=== PATIENT | female | born 1985 | race Caucasian/White ===

== ENCOUNTER 2017-10-10 10:34 | Emergency (ER) | payer BC, OTHER ==
--- NOTE | 2017-10-10 11:04 | ER Document Report ---
ED Medical Screen (RME) - General Chief Complaint: Palpitations Stated Complaint: HEARTRATE ISSUE Time Seen by Provider: 10/10/17 11:01 Notes: Patient says that she has noticed her heart rate increased this morning. She feels "heavy" in the front of her chest. Her heart rate was 120 earlier this morning and got up as high as 144, measured by a sports wristwatch. Also feels some shortness of breath. Patient is approximately 35 weeks and 3 days , G2, P1, A0. Has not been sick recently. Has not had any fevers. Patient is on thyroid medication. TRAVEL OUTSIDE OF THE [place] IN LAST 30 DAYS: No - Related Data Allergies/Adverse Reactions: pertussis vaccine,fluid [Pertussis Vaccine,Fluid] Allergy (Mild, Verified 10:35) "bad reaction" Past Medical History - Social History Chew tobacco use (# tins/day): No Frequency of alcohol use: None Drug Abuse: None - Past Medical History Cardiac Medical History: Denies: Hx Coronary Artery Disease, Hx Heart Attack, Hx Hypertension Pulmonary Medical History: Denies: Hx Asthma, Hx Bronchitis, Hx COPD, Hx Pneumonia Neurological Medical History: Denies: Hx Cerebrovascular Accident, Hx Seizures Renal/ Medical History: Denies: Hx Peritoneal Dialysis Musculoskeltal Medical History: Denies Hx Arthritis Past Surgical History: Reports: Hx Section - x1, Hx Tonsillectomy. Denies: Hx Hysterectomy - Immunizations Hx Diphtheria, Pertussis, Tetanus Vaccination: Yes Physical Exam - Vital signs Vitals: Temp Pulse Resp BP Pulse Ox 98.4 F 103 H 16 138/74 H 97 10/10/17 10:45 10/10/17 10:45 10/10/17 10:45 10/10/17 10:45 10/10/17 10:45 Course - Vital Signs Vital signs: Temp Pulse Resp BP Pulse Ox 98.4 F 103 H 16 138/74 H 97 10/10/17 10:45 10/10/17 10:45 10/10/17 10:45 10/10/17 10:45 10/10/17 10:45 Doctor's Discharge - Discharge Referrals: KENNEDI CHANG MD [Primary Care Provider] - Follow up as needed
[2017-10-10 11:36] LABS: ABSOLUTE EOSINOPHILS # (AUTO) 0.1 10^3/uL (0.0-0.6); ABSOLUTE LYMPHOCYTES (AUTO) 1.5 10^3/uL (0.5-4.7); ABSOLUTE MONOCYTES (AUTO) 0.8 10^3/uL (0.1-1.4); ABSOLUTE NEUT (AUTO) 7.2 10^3/uL (1.7-8.2); BASOPHILS % (AUTO) 0.3 % (0-2); EOSINOPHILS % (AUTO) 0.7 % (0-6); HEMATOCRIT 39.4 % (36.0-47.0); HEMOGLOBIN 13.3 g/dL (12.0-15.5); LYMPHOCYTES % (AUTO) 15.6 % (13-45); MEAN CORPUSCULAR HEMOGLOBIN 29.9 pg (27.0-33.4); MEAN CORPUSCULAR HGB CONC 33.9 g/dL (32.0-36.0); MEAN CORPUSCULAR VOLUME 88 fl (80-97); PLATELET COUNT 162 10^3/uL (150-450); RED BLOOD COUNT 4.46 10^6/uL (3.72-5.28); RED CELL DISTRIBUTION WIDTH 13.6 % (11.5-14.0); SEGMENTED NEUTROPHILS % (AUTO) 75.4 % (42-78); TOTAL CELLS COUNTED % (AUTO) 100 %; WHITE BLOOD COUNT 9.6 10^3/uL (4.0-10.5)
[2017-10-10 11:46] LABS: APPEARANCE,URINE SLIGHTLY-CLOUDY; BILIRUBIN,URINE NEGATIVE (NEGATIVE); COLOR,URINE YELLOW; GLUCOSE, URINE NEGATIVE (NEGATIVE); KETONES,URINE NEGATIVE (NEGATIVE); LEUKOCYTE ESTERASE,URINE NEGATIVE (NEGATIVE); NITRITE,URINE NEGATIVE (NEGATIVE); PROTEIN,URINE NEGATIVE (NEGATIVE); URINE SPECIFIC GRAVITY 1.004; UROBILINOGEN,URINE NEGATIVE mg/dL (<2.0)
[2017-10-10 11:52] LABS: ALANINE AMINOTRANSFERASE 20 U/L (9-52); ALBUMIN 3.7 g/dL (3.5-5.0); ALKALINE PHOSPHATASE 87 U/L (38-126); ANION GAP 10 (5-19); ASPARTATE AMINO TRANSFERASE 22 U/L (14-36); BILIRUBIN,DIRECT 0.2 mg/dL (0.0-0.4); BILIRUBIN,TOTAL 0.2 mg/dL (0.2-1.3); BLOOD UREA NITROGEN 7 mg/dL (7-20); CALCIUM 10.1 mg/dL (8.4-10.2); CARBON DIOXIDE 23 mmol/L (22-30); CHLORIDE 105 mmol/L (98-107); CREATINE KINASE 43 U/L (30-135); GLUCOSE 81 mg/dL (75-110); LIPASE 108.2 U/L (23-300); POTASSIUM 4.2 mmol/L (3.6-5.0); SODIUM 137.7 mmol/L (137-145); TOTAL PROTEIN 6.9 g/dL (6.3-8.2)
--- NOTE | 2017-10-10 11:52 | RADIOLOGY REPORT (SQ) ---
EXAM DESCRIPTION: CHEST 2 VIEWS COMPLETED DATE/TIME: 10/10/2017 11:35 am REASON FOR STUDY: Short of breath and heavy, 35 weeks COMPARISON: None. EXAM PARAMETERS: NUMBER OF VIEWS: two views TECHNIQUE: Digital Frontal and Lateral radiographic views of the chest acquired. RADIATION DOSE: NA LIMITATIONS: none FINDINGS: LUNGS AND PLEURA: No opacities, masses or pneumothorax. No pleural effusion. MEDIASTINUM AND HILAR STRUCTURES: No masses or contour abnormalities. HEART AND VASCULAR STRUCTURES: Heart normal size. No evidence for failure. BONES: No acute findings. HARDWARE: None in the chest. OTHER: No other significant finding. IMPRESSION: NO ACUTE RADIOGRAPHIC FINDING IN THE CHEST. TECHNICAL DOCUMENTATION: JOB ID: [id number] [employer]- All Rights Reserved Reading location - IP/workstation name: [email or web address]
[2017-10-10 12:00] LABS: CREATINE KINASE MB 0.78 ng/mL (<4.55)
[2017-10-10 12:08] LABS: TROPONIN I < 0.012 ng/mL
[2017-10-10 12:09] LABS: FREE T4 (FREE THYROXINE) 0.68 ng/dL (0.78-2.19)
[2017-10-10 12:22] LABS: THYROID STIMULATING HORMONE 3.72 uIU/mL (0.47-4.68)
--- NOTE | 2017-10-10 13:31 | ER Document Report ---
ED Cardiac - General Chief Complaint: Palpitations Stated Complaint: HEARTRATE ISSUE Time Seen by Provider: 10/10/17 11:01 Information source: Patient Notes: Patient is a 32-year-old female that presents today with the onset this morning it woke up feeling some chest pressure, palpitations, and shortness of breath. Patient denies any radiation of the pain. She denies any previous history of pain. She denies any recent calf pain or leg swelling above baseline. Patient is 35 weeks . Patient was told to come to the emergency department by the [facility] OPERATOR. Patient does have a history of thyroid disorder. TRAVEL OUTSIDE OF THE [place] IN LAST 30 DAYS: No - HPI Patient complains to provider of: Other - See above Was the onset of pain: Sudden Is the pain a: New problem Chest pain location: Substernal Quality of pain: Other - See above Chest pain radiation location: None Severity now: None Severity at worst: Mild Pain level currently: Denies Chest pain precipitating factors: At Rest Cardiac risk factors: None Associated symptoms: Other - See above Exacerbated by: Denies Relieved by: Nothing Similar symptoms previously: No Recently seen / treated by doctor: Yes - Related Data Allergies/Adverse Reactions: pertussis vaccine,fluid [Pertussis Vaccine,Fluid] Allergy (Mild, Verified 10:35) "bad reaction" Past Medical History - General Information source: Patient - Social History Smoking Status: Never Smoker Cigarette use (# per day): No Chew tobacco use (# tins/day): No Smoking Education Provided: No Frequency of alcohol use: None Drug Abuse: None Family History: Reviewed & Not Pertinent - No family history of DVT/PE Patient has suicidal ideation: No Patient has homicidal ideation: No - Past Medical History Cardiac Medical History: Denies: Hx Coronary Artery Disease, Hx Heart Attack, Hx Hypertension Pulmonary Medical History: Denies: Hx Asthma, Hx Bronchitis, Hx COPD, Hx Pneumonia Neurological Medical History: Denies: Hx Cerebrovascular Accident, Hx Seizures Renal/ Medical History: Denies: Hx Peritoneal Dialysis Musculoskeletal Medical History: Denies Hx Arthritis Past Surgical History: Reports: Hx Section - x1, Hx Tonsillectomy. Denies: Hx Hysterectomy - Immunizations Hx Diphtheria, Pertussis, Tetanus Vaccination: Yes Review of Systems - Review of Systems Constitutional: denies: Fever EENT: denies: Eye discharge, Nose discharge Respiratory: denies: Short of breath Gastrointestinal: denies: Vomiting Genitourinary: denies: Dysuria Musculoskeletal: denies: Leg swelling Skin: Other - no hives. denies: Rash Neurological/Psychological: Other - no slurred speech -: Yes All other systems reviewed and negative Physical Exam - Vital signs Vitals: Temp Pulse Resp BP Pulse Ox 98.4 F 103 H 16 138/74 H 97 10/10/17 10:45 10/10/17 10:45 10/10/17 10:45 10/10/17 10:45 10/10/17 10:45 Notes: Reviewed vital signs and nursing note as charted by RN. CONSTITUTIONAL: Alert and oriented and responds appropriately to questions. Well -appearing; well-nourished HEAD: Normocephalic; atraumatic EYES: PERRL; Conjunctivae clear, sclerae non-icteric ENT: Normal nose; no rhinorrhea; moist mucous membranes; pharynx without lesions noted NECK: Supple without meningismus; non-tender; no cervical lymphadenopathy, no thyromegaly CARD: Regular rate and rhythm on my initial examination currently with a heart rate of 92; no murmurs, no clicks, no rubs, no gallops; symmetric distal pulses RESP: Normal chest excursion without splinting or tachypnea; breath sounds clear and equal bilaterally; no wheezes, no rhonchi, no rales ABD/GI: Normal bowel sounds; distended consistent with dates. No abdominal tenderness to palpation BACK: The back appears normal and is non-tender to palpation EXT: Normal ROM in all joints; non-tender to palpation; no cyanosis, no edema SKIN: No acute lesions noted NEURO: Moves all extremities equally; Motor and sensory function intact PSYCH: The patient's mood and manner are appropriate. Grooming and personal hygiene are appropriate. Course - Re-evaluation Re-evalutation: 10/10/17 13:30 Given the above history and physical examination, cardiac panel, EKG, TSH and T4 all were drawn. Patient denies any pain currently at this time. Labs as recorded. EKG shows heart of 95, normal sinus rhythm, minimal LVH, no ST elevation or depression. Given the above history and physical, a d-dimer was ordered in triage with the belief that if this was negative, the patient could be excluded from having a possible pulmonary embolism. I believe that this was a reasonable plan. D- dimer as recorded. This still could be elevated secondary to . I had a very long talk with the patient about the risks and benefits of CT scan. Ultrasound and possibly echo. I have explained that we cannot completely exclude a pulmonary embolism but that a CTA is most likely to be the highest sensitivity. Given that the patient is in her third trimester, I do believe the risks to the fetus have much decreased. Patient has thought about the options and will proceed with a CT of the chest. I believe that this is reasonable. 10/10/17 15:37 CTA as recorded. Patient still denies any abdominal pain or contractions. I have discussed with the [facility] OPERATOR Dr. Chang in the emergency department who states that the patient does not require monitoring at this time. Vital signs have improved with a heart rate of 90. Patient will be discharged home with strict return precautions and follow-up with [facility] OPERATOR. Patient understands these instructions. - Vital Signs Vital signs: Temp Pulse Resp BP Pulse Ox 98.4 F 103 H 18 132/84 H 95 10/10/17 10:45 10/10/17 10:45 10/10/17 13:10 10/10/17 13:10 10/10/17 13:10 - Laboratory Result Diagrams: 10/10/17 11:22 10/10/17 11:22 Laboratory results interpreted by me: 10/10/17 10/10/17 11:22 11:22 D-Dimer 1.28 H Free T4 0.68 L Discharge - Discharge Clinical Impression: Chest pain Qualifiers: Chest pain type: unspecified Qualified Code(s): R07.9 - Chest pain, unspecified Qualifiers: Weeks of gestation: 35 weeks Qualified Code(s): Z3A.35 - 35 weeks gestation of Condition: Good Disposition: HOME, SELF-CARE Additional Instructions: Come back immediately with any increased pain, change in location of pain, any abdominal pain, contractions, vaginal bleeding, calf pain or leg swelling, fevers, or any other acute problems. Please call the L[facility]HE[facility] OPERATOR's office as we have discussed for reevaluation. Tell them that you were seen in the emergency department and Dr. Chang would like you reevaluated. Referrals: KENNEDI CHANG MD [ACTIVE STAFF] - Follow up as needed
--- NOTE | 2017-10-10 14:57 | RADIOLOGY REPORT (SQ) ---
EXAM DESCRIPTION: CTA CHEST COMPLETED DATE/TIME: 10/10/2017 2:42 pm REASON FOR STUDY: 21; cp COMPARISON: None. TECHNIQUE: CT scan of the chest performed using helical scanning technique with dynamic intravenous contrast injection. Images reviewed with lung, soft tissue and bone windows. Reconstructed coronal and sagittal MPR images reviewed. Additional 3 dimensional post-processing performed to develop Maximal Intensity Projection images (UT P). All images stored on PACS. All CT scanners at this facility use dose modulation, iterative reconstruction, and/or weight based d osing when appropriate to reduce radiation dose to as low as reasonably achievable (ALARA). [facility]: Dose Right [facility]: CareDose [facility]: Dose Right [facility]: Teradose 4D [facility]: [employer] CONTRAST TYPE AND DOSE: contrast/concentration: Isovue 370.00 mg/ml; Total Contrast Delivered: 154.0 ml; Total Saline Delivered: 131.7 ml RENAL FUNCTION: GFR > 60. RADIATION DOSE: CT Rad equipment meets quality standard of care and radiation dose reduction techniq ues were employed. CTDIvol: 26.9 - 34.8 mGy. DLP: 1162 mGy-cm. . LIMITATIONS: None. FINDINGS: LUNGS AND PLEURA: No masses, infiltrates, or pneumothorax. No pleural effusions or pleura l calcifications. AORTA AND GREAT VESSELS: No aneurysm. Contrast bolus not optimized for the aorta. HEART: No pericardial effusion. No significant coronary artery calcifications. PULMONARY ARTERIES: No emboli visualized in the main pulmonary arteries or the segmental branches. HILAR AND MEDIASTINAL STRUCTURES: No identified masses or abnormal nodes. HARDWARE: None in the chest. UPPER ABDOMEN: No significant findings. Limited exam. THYROID AND OTHER SOFT TISSUES: No masses. No adenopathy. BONES: No acute or significant finding. 3D MIPS: Confirm above findings. OTHER: No other significant finding. IMPRESSION: No evidence of pulmonary embolus. COMMENT: Quality ID # [id number]: Final reports with documentation of one or more dose reduction techniques (e.g., Automated exposure control, adjustment of the mA and/or kV according to patient size, use of iterative reconstruction technique) TECHNICAL DOCUMENTATION: JOB ID: [id number] [employer]- All Rights Reserved Reading location - IP/workstation name: [email or web address]
[2017-10-10 15:56] VITALS: BP 134/83
--- NOTE | 2017-10-11 00:20 | EKG REPORT ---
SEVERITY:- ABNORMAL ECG - SINUS RHYTHM PROBABLE LEFT ATRIAL ABNORMALITY LEFT VENTRICULAR HYPERTROPHY : Confirmed by: Nidhi Simon MD 11-Oct-2017 00:19:16
== END 2017-10-10 16:10 | disposition home or self-care (01) ==
LOC: ER 10:34
DX: O26.93 Pregnancy related conditions, unspecified, third trimester (principal); R00.2 Palpitations; R06.02 Shortness of breath; R07.9 Chest pain, unspecified; Z3A.35 35 weeks gestation of pregnancy
CPT/HCPCS: 36415; 71046; 71275; 80053; 81001; 82550; 82553; 83690; 84439; 84443; 84484; 85025; 85379; 93005; 93010; 99285

== ENCOUNTER 2017-11-06 05:03 | Inpatient (IN) | payer BC, OTHER ==
[2017-11-03 12:17] LABS: ABSOLUTE EOSINOPHILS # (AUTO) 0.1 10^3/uL (0.0-0.6); ABSOLUTE LYMPHOCYTES (AUTO) 1.3 10^3/uL (0.5-4.7); ABSOLUTE MONOCYTES (AUTO) 0.6 10^3/uL (0.1-1.4); ABSOLUTE NEUT (AUTO) 6.2 10^3/uL (1.7-8.2); BASOPHILS % (AUTO) 0.3 % (0-2); EOSINOPHILS % (AUTO) 1.1 % (0-6); HEMATOCRIT 36.4 % (36.0-47.0); HEMOGLOBIN 12.4 g/dL (12.0-15.5); LYMPHOCYTES % (AUTO) 15.6 % (13-45); MEAN CORPUSCULAR HEMOGLOBIN 30.1 pg (27.0-33.4); MEAN CORPUSCULAR HGB CONC 34.1 g/dL (32.0-36.0); MEAN CORPUSCULAR VOLUME 88 fl (80-97); MONOCYTES % (AUTO) 7.3 % (3-13); PLATELET COUNT 136 10^3/uL (150-450); RED BLOOD COUNT 4.12 10^6/uL (3.72-5.28); RED CELL DISTRIBUTION WIDTH 14.1 % (11.5-14.0); SEGMENTED NEUTROPHILS % (AUTO) 75.7 % (42-78); TOTAL CELLS COUNTED % (AUTO) 100 %; WHITE BLOOD COUNT 8.2 10^3/uL (4.0-10.5)
[2017-11-03 12:34] LABS: APPEARANCE,URINE CLEAR; BILIRUBIN,URINE NEGATIVE (NEGATIVE); COLOR,URINE YELLOW; GLUCOSE, URINE NEGATIVE (NEGATIVE); KETONES,URINE TRACE mg/dL (NEGATIVE); LEUKOCYTE ESTERASE,URINE NEGATIVE (NEGATIVE); NITRITE,URINE NEGATIVE (NEGATIVE); PROTEIN,URINE NEGATIVE (NEGATIVE); URINE SPECIFIC GRAVITY 1.023; UROBILINOGEN,URINE NEGATIVE mg/dL (<2.0)
[2017-11-03 12:58] LABS: URINE AMPHETAMINES SCREEN NEGATIVE; URINE BARBITURATES SCREEN NEGATIVE; URINE BENZODIAZEPINES SCREEN NEGATIVE; URINE COCAINE SCREEN NEGATIVE; URINE MARIJUANA (THC) SCREEN NEGATIVE; URINE METHADONE SCREEN NEGATIVE; URINE PHENCYCLIDINE SCREEN NEGATIVE
[~2017-11-06 05:03] MED LIST: CEFAZOLIN 2 GM/D5W RTU 2 GM/50 ML RTUPB IV PRN; LACTATED RINGERS 1000 ML IV PRN; LIDOCAINE 0.5% INJ-PF (5 MG/ML) 50 ML SDV SUBCUT PRN
[2017-11-06] MEDS ORDERED: CEFAZOLIN 1 GM/D5W RTU 2 GM/100 ML RTUPB IV ONE (05:39)
[2017-11-06] MEDS ORDERED: LIDOCAINE 2% INJ-PF (20 MG/ML) 10 ML AMPUL ONE (06:34)
[2017-11-06] MEDS ORDERED: FENTANYL CITRATE INJ/PF 100 MCG/2 ML AMPUL ONE (06:34)
[2017-11-06] MEDS ORDERED: MIDAZOLAM 2 MG/2 ML INJ ONE (06:35)
[2017-11-06] MEDS ORDERED: OXYTOCIN 10 UNIT/ML VIAL ONE (06:35)
[2017-11-06] MEDS ORDERED: ONDANSETRON HCL INJ/PF 4 MG/2 ML SDV ONE (06:35)
[2017-11-06] MEDS ORDERED: ACETAMINOPHEN 1,000 MG/100 ML RTUPB IV ONE (06:36)
[2017-11-06] MEDS ORDERED: PROPOFOL INJ 200 MG/20 ML VIAL IV ONE (06:36)
[2017-11-06] MEDS ORDERED: BUPIVACAINE HCL/DEX-WATER/PF 15 MG/2 ML AMPULE ONE (06:56)
[2017-11-06] MEDS ORDERED: EPHEDRINE SULFATE INJ 50 MG/1 ML AMPULE ONE (06:57)
[2017-11-06] MEDS ORDERED: OXYTOCIN/NORMAL SALINE 20 UNIT/1,000 ML RTUINJ ONE (07:01)
[2017-11-06] MEDS ORDERED: DIPHENHYDRAMINE HCL 50 MG/ML VIAL IV PRN (08:12)
[2017-11-06] MEDS ORDERED: PROMETHAZINE HCL INJ 25 MG/1 ML VIAL IV PRN ×3 (08:12→08:18)
[2017-11-06] MEDS ORDERED: MORPHINE SULFATE 10 MG/ML INJ IV PRN (08:12)
[2017-11-06] MEDS ORDERED: MEPERIDINE HCL/PF INJ 25 MG/1 ML DISP.SYRIN IV PRN (08:12)
[2017-11-06] MEDS ORDERED: FENTANYL CITRATE INJ/PF 100 MCG/2 ML AMPUL IV PRN ×3 (08:12)
[2017-11-06] MEDS ORDERED: MORPHINE SULFATE 10 MG/ML INJ IM PRN (08:18)
[2017-11-06] MEDS ORDERED: OXYTOCIN/NORMAL SALINE 20 UNIT/1,000 ML RTUINJ IV PRN (08:18)
[2017-11-06] MEDS ORDERED: SIMETHICONE 80 MG TAB.CHEW PO PRN (08:18)
[2017-11-06] MEDS ORDERED: MEASLES,MUMPS&RUBELLA VACC/PF 0.5 ML VIAL SUBCUT PRN (08:18)
[2017-11-06] MEDS ORDERED: DIPH/PERTUSS(ACELL)/TETANUS VAC/PF 0.5 ML SYR (>=10YO) IM PRN (08:18)
[2017-11-06] MEDS ORDERED: ACETAMINOPHEN 325 MG TABLET PO PRN (08:18)
--- NOTE | 2017-11-06 08:23 | PDOC DELIVERY SUMMARY ---
Delivery Summary - Maternal Hx : II CHARLENE: 11/11/17 Risk Factors: Previous Ruptured Membranes: AROM Time of Rupture: 07:57 Fluids: Clear - Delivery Labor: Not In Labor Presentation: Vertex Heart Rate Monitoring: Done Pre-Operatively Support Person Present: Yes Location: OR : Scheduled, Repeat Placenta: Within Normal Limits Placenta Description: DISCARDED PER SURGEON Nuchal Cord: No Delivery of Placenta Date: 11/06/17 Delivery of Placenta Time: 07:58 - Medications Type of Anesthesia:: Spinal - Assess and Care Baby 1 Male Delivery of Infant Date: 11/06/17 Delivery of Time: 07:58 at 1 minute: 9 at 5 minutes: 9 Preprinted Number On Band: [id number] Infant Skin to Skin: No Mode of Transport: Bassinet Delivery Weight: 3,470 Infant Delivery Length: 21 in - Delivery Personnel Packing Machine Tender: ROBBIN HART RN: DAVION ALFORD RN: GAVIOTA GLASGOW MD: SINA PADILLA
[2017-11-06] MEDS ORDERED: KETOROLAC TROMETHAMINE INJ/PF 30 MG/1 ML SDV ONE (09:11)
--- NOTE | 2017-11-06 09:16 | OPERATIVE REPORT E ---
Operative Report NAME: MARU JOY : 1985 AGE: 32Y DATE OF SURGERY: 11/06/2017 ROOM: 214 PREOPERATIVE DIAGNOSIS: IUP at term with prior . POSTOPERATIVE DIAGNOSIS: IUP at term with prior . PROCEDURE: Repeat low transverse , delivery of viable male. Apgars of 9 and 9, 7 pounds 10 ounces. SURGEON: Dat PADILLA M.D. ESTIMATED BLOOD LOSS: Less than 1000 mL. TISSUE REMOVED OR ALTERED: Placenta. ANESTHESIA: Spinal. PROCEDURE: The patient was placed in a supine position, rolled on her right side, prepped and draped in the usual fashion. Pfannenstiel incision was made through an existing Pfannenstiel eschar and incision extended through subcutaneous tissue and fashioned with sharp dissection. Fascia was sharply divided and rectus muscle bluntly and sharply divided. Parietal peritoneum was entered with sharp dissection. Uterus nicked in midline and extended bilaterally with blunt dissection. was then delivered through uterine incision. Nose and mouth suctioned with a bulb syringe. Cord was clamped. The infant was passed from the table. Placenta was manually extracted. Uterus closed in 2 layers using 0 Vicryl for a shortening stitch and a second Lembert stitch imbricating the first layer. A small amount of bleeding was noted on the right and it was controlled with a [id number] suture of 0 Vicryl. Hemostasis was noted. Fascia was closed with #1 Vicryl and the skin after closing the subcu with 3-0 Vicryl was closed using absorbable subcu james. The urine remained clear throughout the procedure and was taken to recovery in good condition, infant to nursery in good condition. DICTATING PHYSICIAN: Dat PADILLA M.D. [id number] PHY#: [id number] ID: [id number] JOB#: [id number] ACCT: [id number] cc:Dat PADILLA M.D. >
[2017-11-06] MEDS ORDERED: PHENYLEPHRINE HCL INJ/PF 10 MG/1 ML SDV ONE (09:17)
[2017-11-06] MEDS ORDERED: MORPHINE SULFATE 10 MG/ML INJ ONE (09:44)
[2017-11-06] MEDS: PRENATAL VITAMIN W DHA CAPSULE PO SCH (11:54)
[2017-11-06] MEDS: DOCUSATE SODIUM 100 MG CAPSULE PO SCH ×2 (11:55→18:09)
[2017-11-06] MEDS: OXYCODONE-ACETAMINOPHEN 5-325 MG TABLET PO PRN ×2 (12:02→16:36)
[2017-11-06] MEDS: KETOROLAC TROMETHAMINE INJ/PF 30 MG/1 ML SDV IV SCH ×2 (13:41→22:34)
[2017-11-07] MEDS: KETOROLAC TROMETHAMINE INJ/PF 30 MG/1 ML SDV IV SCH (05:57)
[2017-11-07 08:13] LABS: HEMATOCRIT 30.7 % (36.0-47.0); HEMOGLOBIN 10.4 g/dL (12.0-15.5); MEAN CORPUSCULAR HEMOGLOBIN 30.2 pg (27.0-33.4); MEAN CORPUSCULAR HGB CONC 33.8 g/dL (32.0-36.0); MEAN CORPUSCULAR VOLUME 89 fl (80-97); PLATELET COUNT 107 10^3/uL (150-450); RED BLOOD COUNT 3.43 10^6/uL (3.72-5.28); RED CELL DISTRIBUTION WIDTH 14.1 % (11.5-14.0)
[2017-11-07] MEDS: DOCUSATE SODIUM 100 MG CAPSULE PO SCH ×2 (09:35→17:11)
[2017-11-07] MEDS: PRENATAL VITAMIN W DHA CAPSULE PO SCH (09:35)
[2017-11-07] MEDS: FERROUS SULFATE 325 MG TABLET PO SCH ×2 (09:37→17:14)
[2017-11-07] MEDS: IBUPROFEN 800 MG TABLET PO SCH ×2 (11:21→17:11)
--- NOTE | 2017-11-07 15:11 | PDOC PROGRESS REPORT ---
Subjective-OB Progress Note for:: 11/07/17 Subjective: 32yo G2 now P2 s/p repeat ppd 1. Pt. ambulating and voiding without difficulty. Bonding well with baby. Denies any concerns at this time Physical Exam (OB) Vital Signs: Temp Pulse Resp BP Pulse Ox 97.5 F 74 18 124/53 L 97 11/07/17 04:07 11/07/17 04:07 11/07/17 04:07 11/07/17 04:07 11/07/17 04:07 Intake & Output 11/06/17 11/07/17 11/08/17 06:59 06:59 06:59 Intake Total 1225 Output Total 2400 Balance -1175 - General General Appearance: Appears well In distress: None - PIH/Pre-Eclampsia Clonus: Negative Epigastric Pain: No Visual Changes: No - Dressing Removed: No - medipore Incision: Dressing - Bilateral Tubal Ligation Dressing Removed: No Site: Dressing - Lochia Lochia Amount: Small 10-25 ml Lochia Color: Rubra/Red - Abdomen Description: Soft, Round Hernia Present: No Fundal Description: Firm, Midline Fundal Height: u/u - u/2 - Respiratory Respiratory Status: No respiratory distress - Extremities Upper extremity: Normal inspection Lower extremities: Normal inspection - Neurological Cognition: Normal Orientation: AAOx4 - Psychological Associated symptoms: Normal affect, Normal mood Objective-Diagnostic Laboratory: 11/07/17 06:58 11/07/17 06:58 WBC 9.0 RBC 3.43 L Hgb 10.4 L Hct 30.7 L MCV 89 MCH 30.2 MCHC 33.8 RDW 14.1 H Plt Count 107 L Assessment and Plan(PN) - Assessment and Plan (1) Status post repeat low transverse section Is this a current diagnosis for this admission?: Yes Plan: Routine pp care (2) Acute blood loss anemia Is this a current diagnosis for this admission?: Yes Plan: increase dietary iron and feso4 bid - Time Spent with Patient Time with patient: Less than 15 minutes Medications reviewed and adjusted accordingly: Yes - Disposition Anticipated Discharge: Home Within: within 24 hours
[2017-11-07] MEDS: OXYCODONE-ACETAMINOPHEN 5-325 MG TABLET PO PRN (21:04)
[2017-11-08] MEDS: IBUPROFEN 800 MG TABLET PO SCH ×3 (00:03→12:33)
[2017-11-08] MEDS: FERROUS SULFATE 325 MG TABLET PO SCH (09:15)
[2017-11-08] MEDS: DOCUSATE SODIUM 100 MG CAPSULE PO SCH (09:15)
[2017-11-08] MEDS: PRENATAL VITAMIN W DHA CAPSULE PO SCH (09:15)
--- NOTE | 2017-11-08 09:49 | PDOC PROGRESS REPORT ---
Subjective-OB Progress Note for:: 11/08/17 Subjective: POD #2, A+, Rubella Immune, breast feeding, doing well, no complaints, desires to go home today Physical Exam (OB) Vital Signs: Temp Pulse Resp BP Pulse Ox 98.0 F 69 20 116/64 97 11/08/17 08:30 11/08/17 08:30 11/08/17 08:30 11/08/17 08:30 11/08/17 08:30 Intake & Output 11/07/17 11/08/17 11/09/17 06:59 06:59 06:59 Intake Total 1225 1520 Output Total 2400 Balance -1175 1520 - General General Appearance: Appears well, Alert - PIH/Pre-Eclampsia Clonus: Negative Headache: Absent Epigastric Pain: No Visual Changes: No - Dressing Removed: No - medipore Incision: Dressing Closure Type: Sutures - Bilateral Tubal Ligation Dressing Removed: No Site: Dressing - Lochia Lochia Amount: Small 10-25 ml Lochia Color: Rubra/Red - Abdomen Description: Soft, Round Hernia Present: No Fundal Description: Firm, Midline Fundal Height: u/u - u/2 - HEENT Eyes: Normal Nasal: Normal - Respiratory Respiratory Status: No respiratory distress - Abdominal Inspection: Normal Tenderness: Nontender Organomegaly: No organomegaly - Genitourinary Genitourinary Note: voiding - Extremities Upper extremity: Normal inspection Lower extremities: Normal inspection - Neurological Cognition: Normal Orientation: AAOx4, Alert - Psychological Associated symptoms: Normal affect, Normal mood Objective-Diagnostic Laboratory: 11/07/17 06:58 Assessment and Plan(PN) - Assessment and Plan (1) Acute blood loss anemia Is this a current diagnosis for this admission?: Yes (2) Status post repeat low transverse section Is this a current diagnosis for this admission?: Yes - Time Spent with Patient Time with patient: Less than 15 minutes Medications reviewed and adjusted accordingly: Yes - Disposition Anticipated Discharge: Home Disposition: stable
--- NOTE | 2017-11-08 09:55 | PDOC DISCHARGE SUMMARY ---
Final Diagnosis Discharge Date: 11/08/17 - Final Diagnosis (1) Acute blood loss anemia Is this a current diagnosis for this admission?: Yes (2) Status post repeat low transverse section Is this a current diagnosis for this admission?: Yes Discharge Data - Discharge Medication Prescriptions: Ibuprofen [Motrin 800 mg Tablet] 800 mg PO Q6 #30 tablet Oxycodone HCl/Acetaminophen [Percocet 5-325 mg Tablet] 2 tab PO Q4HP PRN #30 tablet PRN Reason: Home Medications: Levothyroxine Sodium 1 tab PO DAILY 10/10/17 No122/Iron/Folic Acid [ Multi Tablet] 1 tab PO DAILY 11/03/17 Ibuprofen [Motrin 800 mg Tablet] 800 mg PO Q6 #30 tablet 11/08/17 Oxycodone HCl/Acetaminophen [Percocet 5-325 mg Tablet] 2 tab PO Q4HP PRN #30 tablet 11/08/17 Reason(s) for Admission: Ceasarean Section-Repeat Procedures: NST, Ultrasound Intrapartum Procedure(s): : Low Cervical, Transverse - Diagnosis Test Laboratory: Temp Pulse Resp BP Pulse Ox 98.0 F 69 20 116/64 97 11/08/17 08:30 11/08/17 08:30 11/08/17 08:30 11/08/17 08:30 11/08/17 08:30 11/03/17 11/03/17 11/07/17 11:28 11:39 06:58 RBC 4.12 3.43 L Hgb 12.4 10.4 L Hct 36.4 30.7 L Urine Opiates Screen NEGATIVE - Discharge information/Instructions Discharge Activity: Activity As Tolerated, No Lifting Over 10 Pounds, Pelvic Rest Discharge Diet: As Tolerated, Regular Disposition: HOME, SELF-CARE Follow [facility]: [facility] in: 1, Weeks
[2017-11-08 12:00] VITALS: BP 116/63
== END 2017-11-08 15:55 | disposition home or self-care (01) | DRG 765 ==
LOC: 2S 05:03
PROVIDERS: ADMIT Obstetrics & Gynecology Gynecology; ATTEND Obstetrics & Gynecology Gynecology
PROC: 10D00Z1 Extraction of Products of Conception, Low, Open Approach (ICD-10-PCS; principal; 2017-11-06 07:45)
DX: O34.211 Maternal care for low transverse scar from previous cesarean delivery (principal); D62 Acute posthemorrhagic anemia; Z68.41 Body mass index [BMI] 40.0-44.9, adult; O99.284 Endocrine, nutritional and metabolic diseases complicating childbirth; E03.9 Hypothyroidism, unspecified; O90.81 Anemia of the puerperium; O99.214 Obesity complicating childbirth; N85.8 Other specified noninflammatory disorders of uterus; E66.9 Obesity, unspecified; Z37.0 Single live birth; Z3A.39 39 weeks gestation of pregnancy
CPT/HCPCS: 1961; 36415; 59025; 80307; 81001; 85025; 85027; 86850; 86900; 86901; 94799; J0131; J1885; J2250; J2270; J2370; J2405; J2590; J2704; J3010; J3490; J7120